=== PATIENT | female | born 1985 | race Caucasian/White ===

== ENCOUNTER 2023-01-17 15:14 | Emergency (ER) | payer BC ==
[2023-01-17] MEDS ORDERED: Ketorolac 60 MG/2 ML SDV IM ONE (15:46)
== END 2023-01-17 18:45 | disposition home or self-care (01) ==
LOC: JD.ED 15:14
DX: S82.832A Other fracture of upper and lower end of left fibula, initial encounter for closed fracture (principal); S93.402A Sprain of unspecified ligament of left ankle, initial encounter; Z88.0 Allergy status to penicillin; Z88.1 Allergy status to other antibiotic agents; W01.0XXA Fall on same level from slipping, tripping and stumbling without subsequent striking against object, initial encounter; Y93.41 Activity, dancing
CPT/HCPCS: 73562; 73610; 96372; 99283; J1885; 99282